=== PATIENT | male | born 1985 | race Caucasian/White ===

== ENCOUNTER 2017-11-23 20:29 | Emergency (ER) | payer SELFPAY ==
[~2017-11-23] VITALS: Ht 177.8 cm; Wt 76.2 kg
--- NOTE | 2017-11-23 20:44 | NUR ---
CALLED NO ANSWER IN [place]
[2017-11-23 20:59] VITALS: BP 130/61
== END 2017-11-23 21:15 | disposition home or self-care (01) ==
LOC: ER 20:32
DX: Z76.0 Encounter for issue of repeat prescription (principal); J45.909 Unspecified asthma, uncomplicated
CPT/HCPCS: A4606; Z7610

== ENCOUNTER 2018-01-27 09:02 | Outpatient (CLI) | payer SELFPAY ==
[2018-01-27 09:57] LABS: GLUCOSE FASTING 91 mg/dL (74-106)
[2018-01-27] MEDS ORDERED: BARIUM SULFATE 98% 135 ML SUSP.RECON PO ONE (10:04)
== END 2018-01-27 23:59 | disposition home or self-care (01) ==
LOC: RAD 09:02
DX: K22.8 Other specified diseases of esophagus (principal)
CPT/HCPCS: 74246-TC; 82951-TC